=== PATIENT | male | born 1985 | race Hispanic/Latino ===

== ENCOUNTER 2022-10-04 09:04 | Day surgery (SDC) | payer BC ==
[2022-09-30 13:28] LABS: HEMATOCRIT 42.6 % (42-54); MEAN CORPUSCULAR HGB CONC 32.9 g/dL (32.0-36.0); MEAN CORPUSCULAR VOLUME 82.1 fL (79-99); RED BLOOD CELL COUNT(AUTO) 5.19 MIL/uL (4.50-6.20); RED CELL DISTRIBUTION WIDTH 13.1 % (11.0-15.5); WHITE BLOOD COUNT (AUTO) 6.9 K/uL (4.8-10.8)
[2022-09-30 13:29] LABS: BASOPHILS % (AUTO) 0.4 % (0.0-5.0); EOSINOPHILS % (AUTO) 2.3 % (0.0-8.0); LYMPHOCYTES % (AUTO) 24.6 % (21.0-51.0); MONOCYTES % (AUTO) 7.4 % (3.0-13.0); NEUTROPHILS % (AUTO) 64.9 % (40.0-77.0); PLATELET COUNT (AUTO) 248 K/uL (130-400)
[2022-09-30 13:37] LABS: POTASSIUM 4.1 mmol/L (3.5-5.1)
[2022-09-30 13:39] LABS: INR 0.94 (0.85-1.15); PROTHROMBIN TIME 10.3 SEC (9.6-11.6)
[2022-09-30 13:40] LABS: PARTIAL THROMBOPLASTIN TIME 30.3 SEC (26.3-35.5)
[2022-09-30 13:44] VITALS: BP 143/82
[~2022-10-04] VITALS: Ht 177.8 cm; Wt 115.6 kg
[2022-10-04] VITALS (13 sets, daily range): BP systolic 124–138; BP diastolic 78–90
[~2022-10-04 09:04] MED LIST: HYDR-3830 PO; MAGNESIUM PO; MV-M1TAB20 PO
[2022-10-04] MEDS ORDERED: 0.9%NACL 1000ML 1,000 ML IV ONE (10:20)
[2022-10-04] MEDS ORDERED: FENTANYL CITRATE PF 50 MCG/1 ML 2ML VIAL ONE (10:39)
[2022-10-04] MEDS ORDERED: MIDAZOLAM HCL 1 MG/ML 2ML VIAL ONE (10:40)
[2022-10-04] MEDS ORDERED: LIDOCAINE HCL 2% VISCOUS 15 ML UDCUP ONE (10:43)
[2022-10-04] MEDS ORDERED: FLUMAZENIL 0.1MG/1ML 5ML VIAL IV ONE (10:47)
[2022-10-04] MEDS ORDERED: NALOXONE HCL 0.4 MG/1 ML ML ONE (10:47)
[2022-10-04] MEDS ORDERED: APIX5TAB PO (11:48)
== END 2022-10-04 12:05 | disposition home or self-care (01) ==
LOC: DAH 09:04 → EDSTATUS 12:15
PROVIDERS: ATTEND Student in an Organized Health Care Education/Training Program
DX: R07.89 Other chest pain (principal); I34.0 Nonrheumatic mitral (valve) insufficiency; I51.3 Intracardiac thrombosis, not elsewhere classified; Q21.12 Patent foramen ovale; Q21.19 Other specified atrial septal defect; Z98.890 Other specified postprocedural states; Z79.01 Long term (current) use of anticoagulants
CPT/HCPCS: 80048; 85025; 85610; 85730; 36415; 93005; 93312; 93325; J3010; J7030; J2250; A4215; A4222; A4221; A4663; A4216; A4606; A4223 ×2; 96374; 99152; J2310; J3490